=== PATIENT | male | born 1955 | race Caucasian/White ===

== ENCOUNTER → 2017-04-04 | Outpatient (CLI) | payer BC ==
[~2017-04-04] MED LIST: CETI10TA84 PO; PREG1CAP70 PO; TRAM200T16 PO
--- NOTE | 2017-04-04 10:28 | DIAGNOSTIC IMAGING REPORT ---
(CHEST) THORAX WITHOUT CLINICAL HISTORY: 61 years-old Male presenting with R91.8 Lung nodule, appointment scheduled 04-04-17 arrive @ 10:0. TECHNIQUE: Multidetector CT imaging of the chest was performed without the use of intravenous contrast. IV contrast: None. A dose lowering technique was used consistent with the principles of ALARA (as low as reasonably achievable). COMPARISON: 06/10/2016. CT DOSE (mGy.cm): The estimated cumulative dose is 347.02 mGy.cm. FINDINGS: Group Art Supervisor topogram: Unremarkable. On soft tissue windows, normal thyroid and thoracic inlet. Few prominent mediastinal lymph nodes, which are subcentimeter in the short axis and unchanged from prior. Evaluation of the filiberto limited without intravenous contrast. Mild atherosclerosis of aortic arch. Normal heart size. No pericardial or pleural effusion. Upper abdomen normal. On lung windows, extensive bandlike opacities at the lung bases as well as minimal dependent groundglass opacity consistent with scarring and atelectasis. Solid 3 mm pulmonary nodule posteriorly at the right apex (series 4 image 52), unchanged solid 3 mm pulmonary nodule in the right middle lobe (series 4 image 183), unchanged. Solid 5 mm pulmonary nodule in the superior segment of the left lower lobe (series 4 image 114), unchanged. Solid 5 mm fissural nodule in the left lower lobe (series 4 image 143). Few scattered calcified granulomas. No new pulmonary nodule. Airways patent. On bone windows, mild degenerative changes of the thoracic spine. IMPRESSION: 1. Stable solid pulmonary nodules measuring up to 5 mm. These have been stable since 04/15/2015. No new nodule. 2. Bibasilar atelectasis and scarring, unchanged. Electronically signed by: Florencio Marie M.D. 04/04/2017 10:27 AM Dictated Date/Time: 04/04/2017 10:20 AM
== END | disposition home or self-care (01) ==
LOC: C.CTS 10:09
PROVIDERS: ATTEND Internal Medicine Pulmonary Disease
DX: R91.8 Other nonspecific abnormal finding of lung field (principal); J98.11 Atelectasis